=== PATIENT | female | born 1940 | race Caucasian/White ===

== ENCOUNTER 2018-07-16 12:58 | Outpatient (CLI) | payer MEDICARE, OTHER ==
[2018-07-16] MEDS ORDERED: ISOVUE-370 76%-LOCM 1 ML ONE (13:36)
--- NOTE | 2018-07-16 16:02 | CT ---
ABDOMEN AND PELVIC CT WITH CONTRAST: 07/16/18 HISTORY: Abdominal pain. History of abdominal pain. History of diverticulitis. Reference made to 03/02/15 CT exam. FINDINGS: Stable small hyperdensity of the hepatic dome is present likely a benign vascular process. There are several scattered hypodensities of the liver, grossly stable to prior exam and most likely related to stable cysts. There is a moderate sized hiatal hernia. Spleen and pancreas reveal no acute process. No evidence of adrenal mass or hydronephrosis of either kidney. Small bowel is normal in caliber. The re are numerous colonic diverticula, without evidence of acute diverticulitis. Evidence of prior chol ecystectomy. There is diffuse vascular disease. No free air or portal vein gas. No ascites of the abd omen and pelvis. There is streak artifact from spinal hardware. Evaluation of the visualized lung bas es reveals no acute process. Partially imaged bilateral breast implants are seen. IMPRESSION: 1. Numerous colonic diverticula, without CT evidence of acute diverticulitis. 2. Several scattered hepatic hypodensities, as well as hepatic hyperdensity, stable appearing to 03/02/15 exam. 3. Moderate hiatal hernia, although decreased in volume from prior exam. POS: [facility]
== END 2018-07-16 12:59 | disposition home or self-care (01) ==
LOC: BICCT 12:58
PROVIDERS: ATTEND Specialist
DX: K57.30 Diverticulosis of large intestine without perforation or abscess without bleeding (principal); K44.9 Diaphragmatic hernia without obstruction or gangrene; K76.89 Other specified diseases of liver
CPT/HCPCS: 74177; 82565

== ENCOUNTER 2019-08-19 12:13 | Emergency (ER) | payer MEDICARE, OTHER ==
[2019-08-19 13:47] LABS: #Lymphocytes 1.5 thou/uL (1.20-3.40); #Monocytes 0.5 thou/uL (0.11-0.59); #Neutrophils 4.5 thou/uL (1.40-6.50); %Basophils 0.4 % (0.0-1.0); %Eosinophils 0.5 % (0.0-10.0); %Lymphocytes 22.8 % (21.0-51.0); %Monocytes 7.4 % (0.0-10.0); %Neutrophils 68.9 % (42.0-75.0); Hemoglobin 13.2 g/dL (12.0-16.0); Mean Corpuscular Hemoglobin 29.1 pg (27.0-31.0); Mean Corpuscular Volume 88.2 fL (78.0-98.0); Mean Platelet Volume 6.7 fL (7.4-10.4); Platelet Count 343 thou/uL (130-400); RBC Distribution Width 12.9 % (11.5-14.5); Red Blood Cell (RBC) Count 4.52 mill/uL (4.20-5.40); White Blood Cell (WBC) Count 6.6 thou/uL (4.8-10.8)
[2019-08-19] MEDS ORDERED: Famotidine/PF 20 mg/2ml Vial ONE (14:02)
--- NOTE | 2019-08-19 14:08 | RAD ---
XR Chest 1 View Portable HISTORY: Weakness COMPARISON: 03/02/2015 FINDINGS: The heart size is normal. The lungs are well expanded without focal areas of consolidation, pneumothorax or pleural effusions. Postop changes and metallic hardware in the thoracic or lumbar spine is again seen. IMPRESSION: No radiographic evidence of acute cardiopulmonary process.
[2019-08-19 14:16] LABS: ALT (SGPT) 22 U/L (8-55); AST (SGOT) 54 U/L (5-34); Albumin 4.1 g/dL (3.4-4.8); Alkaline Phosphatase 93 U/L (40-110); Anion Gap 17 mmol/L (10-20); BUN (Urea Nitrogen) 14 mg/dL (9.8-20.1); Bilirubin, Total 0.5 mg/dL (0.2-1.2); Calc. Creatinine Clearance 0 mL/min (70-130); Calcium 9.4 mg/dL (7.8-10.44); Carbon Dioxide 18 mmol/L (23-31); Chloride 106 mmol/L (98-107); Estimated GFR-MDRD 50; Globulin 2.9 g/dL (2.4-3.5); Glucose 112 mg/dL (83-110); Lipase 13 U/L (8-78); Potassium 4.1 mmol/L (3.5-5.1); Sodium 137 mmol/L (136-145)
[2019-08-19 15:27] LABS: Bilirubin Negative (Negative); Blood, Urine Negative (Negative); Clarity Clear (Clear); Glucose, Urine (Dipstick) Normal (Negative); Leukocyte Negative Leu/uL (Negative); Nitrite Negative (Negative); Protein, Urine (Dipstick) Negative (Neg-Trace); Urobilinogen Normal mg/dL (Less than 2)
--- NOTE | 2019-08-19 15:30 | CT ---
CT ABDOMEN AND PELVIS PERFORMED WITH INTRAVENOUS CONTRAST ENHANCEMENT: HISTORY: Left lower quadrant pain. COMPARISON: CT study of 07/06/2018. FINDINGS: The lung bases are clear of any infiltrative process. There is a moderate hiatal hernia present. An enhancing vascular focus within the dome of the liver is stable. IT could represent a small heman gioma. There are other hypodense lesions within the right and left lobes of the liver which were sta ble, most likely cysts. One of these appears to contain some calcification. The spleen is within no rmal limits. The pancreas is mildly atrophic and the gallbladder has been removed. Right and left adrenal glands and right and left kidneys are normal in size. No obstruction or renal calculi. No significant periaortic or mesenteric adenopathy. CT OF PELVIS PERFORMED WITH CONTRAST ENHANCEMENT: There is colonic diverticulosis which mainly relates to some moderately severe changes of the sigmoid region. I do not see any obvious CT evidence for diverticulitis. The cecum is low-lying and filled with stool. The bladder wall appears mildly thickened. Postoperative changes of the spine are seen. IMPRESSION: 1. Stable liver lesions as discussed above. 2. Moderately large hiatal hernia. 3. Sigmoid diverticulosis. 4. Mild bladder wall thickening. Some of this was on the basis of underdistension but does raise th e possibility of a cystitis. POS: [facility]
== END 2019-08-19 16:12 | disposition home or self-care (01) ==
LOC: ERS 12:13
DX: E86.0 Dehydration (principal); E78.5 Hyperlipidemia, unspecified; E78.00 Pure hypercholesterolemia, unspecified; I10 Essential (primary) hypertension
CPT/HCPCS: 36415; 71045; 74177; 80053; 81003; 83605; 83690; 83735; 84484; 85025; 86850; 86900; 86901; 93005; 94760; 96361; 96374; S0028

== ENCOUNTER 2019-08-26 13:37 | Emergency (ER) | payer MEDICARE, OTHER ==
[2019-08-26] MEDS ORDERED: Ondansetron PF 4 MG/2 ML Vial ONE (14:24)
[2019-08-26] MEDS ORDERED: Iopamidol-370 76% 500 ML 1 ML ONE (14:37)
[2019-08-26 15:14] LABS: #Basophils 0.1 thou/uL (0.0-0.2); #Eosinphils 0.1 thou/uL (0.0-0.7); #Lymphocytes 1.8 thou/uL (1.20-3.40); #Monocytes 0.4 thou/uL (0.11-0.59); #Neutrophils 5.4 thou/uL (1.40-6.50); %Basophils 0.8 % (0.0-1.0); %Lymphocytes 23.5 % (21.0-51.0); %Monocytes 5.5 % (0.0-10.0); %Neutrophils 69.1 % (42.0-75.0); Hemoglobin 13.6 g/dL (12.0-16.0); Mean Corpuscular HGB CONC 33.3 g/dL (32.0-36.0); Mean Corpuscular Hemoglobin 29.2 pg (27.0-31.0); Mean Corpuscular Volume 87.7 fL (78.0-98.0); Mean Platelet Volume 6.7 fL (7.4-10.4); Platelet Count 324 thou/uL (130-400); RBC Distribution Width 13.1 % (11.5-14.5); Red Blood Cell (RBC) Count 4.67 mill/uL (4.20-5.40); White Blood Cell (WBC) Count 7.8 thou/uL (4.8-10.8)
[2019-08-26 15:26] LABS: Bilirubin Negative (Negative); Blood, Urine Negative (Negative); Clarity Clear (Clear); Glucose, Urine (Dipstick) Normal (Negative); Leukocyte Negative Leu/uL (Negative); Nitrite Negative (Negative); Protein, Urine (Dipstick) Negative (Neg-Trace); Urobilinogen Normal mg/dL (Less than 2)
[2019-08-26 15:40] LABS: ALT (SGPT) 26 U/L (8-55); AST (SGOT) 42 U/L (5-34); Albumin 4.4 g/dL (3.4-4.8); Alkaline Phosphatase 90 U/L (40-110); Anion Gap 17 mmol/L (10-20); BUN (Urea Nitrogen) 14 mg/dL (9.8-20.1); Bilirubin, Total 0.5 mg/dL (0.2-1.2); Calc. Creatinine Clearance 0 mL/min (70-130); Calcium 9.6 mg/dL (7.8-10.44); Carbon Dioxide 22 mmol/L (23-31); Chloride 106 mmol/L (98-107); Estimated GFR-MDRD 56; Globulin 2.6 g/dL (2.4-3.5); Glucose 112 mg/dL (83-110); Lipase 20 U/L (8-78); Magnesium 2.3 mg/dL (1.6-2.6); Potassium 4.2 mmol/L (3.5-5.1); Sodium 141 mmol/L (136-145)
[2019-08-26 16:52] LABS: Acetaminophen Less than 6.0 mcg/mL (10.0-30.0); Alcohol Less than 10 mg/dL (Less than 10); Salicylate Less than 8.0 mg/dL (15.0-30.0)
[2019-08-26 17:11] LABS: Amphetamine Not Detected (NotDetected); Barbiturates Screen Not Detected (NotDetected); Benzodiazepine Screen Not Detected (NotDetected); Cocaine Metabolite Screen Not Detected (NotDetected); Medtox Control Line Valid? VALID (VALID); Medtox Reader # READER 4; Methadone Not Detected (NotDetected); Methamphetamine Not Detected (NotDetected); Opiate Screen Not Detected (NotDetected); Oxycodone Screen Not Detected (NotDetected); Phencyclidine (PCP) Not Detected (NotDetected); THC/Cannabinoid Screen Not Detected (NotDetected); Tricyclic Screen Not Detected (NotDetected)
[2019-08-26] MEDS ORDERED: Lorazepam 2 MG/ML VIAL ONE (17:21)
--- NOTE | 2019-08-26 17:57 | CT ---
CT ABDOMEN AND PELVIS WITH IV CONTRAST 08/26/2019 CLINICAL INFORMATION: Abdominal pain. Diverticulitis COMPARISON: 08/19/2019 Technique: Multiple contiguous axial CT images are obtained through the abdomen and pelvis with IV contrast. Cor onal reformatted images are provided. FINDINGS: Lower Chest: There is dependent bibasilar atelectasis. A hiatal hernia is again partially imaged. Met allic densities are seen in the region of the hiatal hernia which is likely related to prior postsurgical changes in this region. Vessels: Vascular calcifications are again seen involving the abdominal aorta and iliac arteries. Abdomen: Portal vein:Patent Gallbladder: Surgically absent. Liver: The approximately 1 cm peripherally enhancing focus in the dome of the liver is again seen and stable, and this is also unchanged compared to prior study on 07/16/2018. Additional stable hypodense lesions are again seen in the left hepatic lobe with largest hypodense lesion again contain ing calcification at the periphery. Spleen: within normal limits. Pancreas: within normal limits. Adrenals: within normal limits. Kidneys: within normal limits. Bowel: Multiple colonic diverticula are again seen involving the descending and sigmoid colon. There are no CT findings to suggest diverticulitis. Appendix: Not visualized. Peritoneum: No ascites or free air; no fluid collection. Mesentery and Retroperitoneum: No enlarged mesenteric or retroperitoneal lymph nodes. Abdominal Wall: There is partial visualization of bilateral breast prostheses. Pelvis: Reproductive Organs: Uterus is surgically absent. Pelvis within normal limits. Bladder: within normal limits. Bones: Postsurgical and degenerative changes of the thoracolumbar spine are again noted. Irregularity of the left iliac bone is likely postsurgical in origin. IMPRESSION: 1. No acute findings in the abdomen or pelvis. 2. Stable hepatic lesions. 3. Colonic diverticulosis without CT evidence of diverticulitis. 4. Hiatal hernia again seen.
== END 2019-08-26 19:53 | disposition home or self-care (01) ==
LOC: ERS 13:37
DX: K57.32 Diverticulitis of large intestine without perforation or abscess without bleeding (principal); F32.9 Major depressive disorder, single episode, unspecified; R53.1 Weakness; E78.5 Hyperlipidemia, unspecified; E78.00 Pure hypercholesterolemia, unspecified; I10 Essential (primary) hypertension
CPT/HCPCS: 36415; 74177; 80053; 80306; 80307; 81003; 83690; 83735; 84443; 84484; 85025; 96361; 96374; 96375; J2060; J2405; Q9967

== ENCOUNTER 2020-07-08 09:24 | Outpatient (CLI) | payer MEDICARE, OTHER ==
--- NOTE | 2020-07-08 11:40 | MRI ---
MR the abdomen with and without contrast INDICATION: History of abnormal liver function tests and liver lesions COMPARISON: Prior CT the abdomen and pelvis with contrast dated August 26, 2019, August 19, 2019, July 16, 2018 and March 02, 2015 Contrast: 15 cc of MultiHance FINDINGS: The scattered hepatic cysts are largely stable. The largest within the right hepatic lobe measures 3. 4 x 2.9 cm. The lesion measured up artery 3.6 x 2.3 cm on the comparison CT. The largest cyst within the left hepatic lobe measures 2.7 cm which is stable. There is a small hemangioma within segm ent 7 of the right hepatic dome that is stable in size measuring 1.1 cm. Small capillary hemangioma within the anterior medial left hepatic lobe measuring 6 mm is stable. There is diffuse fatty infiltr ation of the liver. There is a small 6 mm left mid renal cyst. The right kidney is normal-appearing. The adrenal glands a nd spleen appear within normal limits. The intrahepatic and extra hepatic biliary ductal system appears within normal limits. The main pancreatic duct appears within normal limits. The gallbladder is surgically absent. There is susceptibility artifact involving the thoracolumbar spine consistent with lumbar spinal instrumentation. No overt marrow signal abnormality is evident. There are bilatera l breast implants. No free fluid or lymphadenopathy is evident. There is a moderate-sized hiatal hernia. IMPRESSION: 1. Diffuse fatty liver. 2. Stable hepatic cysts and hepatic hemangioma. 3. Moderate size hiatal hernia. 4. Left renal cyst.
[2020-07-08] MEDS ORDERED: Magnevist 469MG/ML 20 ML VIAL ONE (14:19)
== END 2020-07-08 09:25 | disposition home or self-care (01) ==
LOC: BICMRI 09:24
PROVIDERS: ATTEND Internal Medicine Gastroenterology
DX: K76.0 Fatty (change of) liver, not elsewhere classified (principal); R94.5 Abnormal results of liver function studies; N28.1 Cyst of kidney, acquired; K44.9 Diaphragmatic hernia without obstruction or gangrene; D18.09 Hemangioma of other sites; K76.89 Other specified diseases of liver
CPT/HCPCS: 74183; A9579

== ENCOUNTER 2021-08-15 09:29 | Outpatient (CLI) | payer MEDICARE, OTHER | END 2021-08-15 09:30 | disposition home or self-care (01) | LOC: ULT 09:29 | PROVIDERS: ATTEND Specialist | DX: E04.2 Nontoxic multinodular goiter (principal) | CPT/HCPCS: 76536 ==